=== PATIENT | male | born 1975 | race Caucasian/White ===

== ENCOUNTER 2018-04-27 12:34 | Inpatient (IN) | payer MEDICAID ==
[~2018-04-27] VITALS: Ht 177.8 cm; Wt 64.4 kg
[2018-04-27 13:04] VITALS: BP_SYST 154
[2018-04-27] MEDS ORDERED: NACL 0.9% 1,000 ML IV ONE (14:45)
[2018-04-27 15:02] LABS: BILIRUBIN,URINE NEGATIVE (NEGATIVE); BLOOD, URINE NEGATIVE (NEGATIVE); CLARITY/URINE CLEAR (CLEAR); COLOR,URINE YELLOW (YELLOW); GLUCOSE,URINE NEGATIVE (NEGATIVE); KETONES,URINE 1+ (NEGATIVE); LEUKOCYTE ESTERASE ,URINE NEGATIVE (NEGATIVE); NITRITE, URINE NEGATIVE (NEGATIVE); PH,URINE 6.5 (5.0-8.0); PROTEIN URINE NEGATIVE (NEGATIVE)
[2018-04-27 15:13] LABS: BARBITURATE, URINE NEGATIVE (NEG <=200); BENZODIAZEPINE, URINE NEGATIVE (NEG <=150); CANNABINOID, URINE POSITIVE (NEG <=50); COCAINE, URINE NEGATIVE (NEG <=150); METHAMPHETAMINES SCREEN,URINE NEGATIVE (NEG <=500); URINE AMPHETAMINE NEGATIVE (NEG <=500); URINE METHADONE NEGATIVE (NEG <=200)
[2018-04-27 15:14] LABS: OPIATE, URINE NEGATIVE (NEG <=100); PHENCYCLIDINE SCREEN,URINE NEGATIVE (NEG <=25); UR TRICYCLIC ANTIDEPRESSANTS NEGATIVE (NEG <=300); URINE OXYCODONE SCREEN NEGATIVE (NEG <=100); URINE PROPOXYPHENE SCREEN NEGATIVE (NEG <=300)
[2018-04-27 15:22] LABS: CALCIUM 9.9 mg/dL (8.4-11.0); CREATININE 0.72 mg/dL (0.55-1.30)
[2018-04-27 15:24] LABS: PROTHROMBIN TIME 10.2 SECS (9.5-12.5)
[2018-04-27 15:42] LABS: BASOPHILS % (AUTO) 0.2 % (0.0-2.0); EOSINOPHILS % (AUTO) 0.1 % (0.0-4.0); HEMATOCRIT 45.4 % (36-54); HEMOGLOBIN 15.5 g/dL (14.0-18.0); LYMPHOCYTES # (AUTO) 0.8 K/uL (1.0-5.5); LYMPHOCYTES % (AUTO) 7.6 % (20.5-51.5); MEAN CORPUSCULAR HEMOGLOBIN 32 pg (27-31); MEAN CORPUSCULAR HGB CONC 34 % (32-36); MEAN CORPUSCULAR VOLUME 94 fL (79.0-98.0); MONOCYTES # (AUTO) 0.7 K/uL (0.0-1.0); MONOCYTES % (AUTO) 7.3 % (1.7-9.3); NEUTROPHILS # (AUTO) 8.5 K/uL (1.8-7.7); NEUTROPHILS % (AUTO) 84.8 % (40.0-70.0); PLATELET COUNT (AUTO) 175 K/uL (130-430); RED BLOOD CELL COUNT(AUTO) 4.84 MIL/uL (4.2-6.2); RED CELL DISTRIBUTION WIDTH 13.7 % (9.0-15.0)
[2018-04-27] MEDS ORDERED: KCL 20 mEq in NS 1000 mL 1,000 ML IV ONE (16:00)
[2018-04-27] MEDS ORDERED: HYDR25TA4 PO (17:10)
[2018-04-27] MEDS ORDERED: KCL 40mEq in D5/0.45NS 1000 mL 1,000 ML IV ONE (17:15)
[2018-04-27 18:11] VITALS: BP_SYST 166
[2018-04-27 19:10] VITALS: BP_SYST 137
[2018-04-27] MEDS ORDERED: chlordiazePOXIDE HCL 25 MG CAPSULE PO PRN (21:30)
[2018-04-27] MEDS ORDERED: ONDANSETRON HCL 4 MG/2 ML VIAL IVP PRN (21:30)
[2018-04-27] MEDS ORDERED: cloNIDine HCL 0.2 MG TABLET PO SCH (21:30)
[2018-04-27] MEDS ORDERED: THIAMINE HCL 100 MG TABLET PO SCH (21:30)
[2018-04-27] MEDS ORDERED: THIAMINE HCL 100 MG in NS 50 ML IV ONE (21:30)
[2018-04-27] MEDS ORDERED: cloNIDine HCL 0.1 MG TABLET PO PRN (21:30)
[2018-04-27] MEDS ORDERED: FAMOTIDINE 20 MG TABLET PO ONE (22:00)
[2018-04-27] MEDS ORDERED: THIAMINE HCL 100 MG TABLET PO ONE (22:30)
[2018-04-27] MEDS ORDERED: cloNIDine HCL 0.2 MG TABLET PO ONE (22:30)
[2018-04-27] MEDS: LORazepam 2 MG/ML VIAL IVP PRN (22:41)
[2018-04-28] MEDS ORDERED: KCL 20 mEq in 100 mL (PREMIX) 100 ML IV ONE (00:10)
[2018-04-28 00:17] VITALS: BP_SYST 128
[2018-04-28] MEDS: KCL 20 mEq in D5NS 1000 mL 1,000 ML IV SCH ×2 (00:53→12:32)
[2018-04-28 07:20] VITALS: BP_SYST 117
[2018-04-28 08:28] LABS: BASOPHILS # (AUTO) 0.1 K/uL (0.0-0.2); BASOPHILS % (AUTO) 1.4 % (0.0-2.0); EOSINOPHILS # (AUTO) 0.1 K/uL (0.0-0.4); EOSINOPHILS % (AUTO) 1.4 % (0.0-4.0); HEMATOCRIT 38.4 % (36-54); HEMOGLOBIN 13.6 g/dL (14.0-18.0); LYMPHOCYTES # (AUTO) 1.5 K/uL (1.0-5.5); LYMPHOCYTES % (AUTO) 31.1 % (20.5-51.5); MEAN CORPUSCULAR HEMOGLOBIN 34 pg (27-31); MEAN CORPUSCULAR HGB CONC 35 % (32-36); MEAN CORPUSCULAR VOLUME 95 fL (79.0-98.0); MONOCYTES # (AUTO) 0.6 K/uL (0.0-1.0); MONOCYTES % (AUTO) 12.8 % (1.7-9.3); NEUTROPHILS # (AUTO) 2.5 K/uL (1.8-7.7); NEUTROPHILS % (AUTO) 53.3 % (40.0-70.0); PLATELET COUNT (AUTO) 124 K/uL (130-430); RED BLOOD CELL COUNT(AUTO) 4.04 MIL/uL (4.2-6.2); RED CELL DISTRIBUTION WIDTH 13.6 % (9.0-15.0)
[2018-04-28 08:36] LABS: CALCIUM 8.8 mg/dL (8.4-11.0); CREATININE 0.95 mg/dL (0.55-1.30); POTASSIUM 3.9 mmol/L (3.5-5.1)
[2018-04-28 08:38] LABS: WHITE BLOOD COUNT (AUTO) 4.8 K/uL (4.8-10.8)
[2018-04-28] MEDS: THIAMINE HCL 100 MG TABLET PO SCH (09:50)
[2018-04-28] MEDS: FAMOTIDINE 20 MG TABLET PO SCH (09:50)
[2018-04-28] MEDS: cloNIDine HCL 0.2 MG TABLET PO SCH ×2 (09:51→20:40)
[2018-04-28] MEDS: LORazepam 2 MG/ML VIAL IVP PRN (09:58)
[2018-04-28 12:18] VITALS: BP_SYST 117
[2018-04-28 16:55] VITALS: BP_SYST 117
[2018-04-28 20:00] VITALS: BP_SYST 114
[2018-04-28] MEDS ORDERED: ENOXAPARIN SODIUM 40 MG/0.4 ML SYRINGE SUBCUT SCH (21:00)
[2018-04-29 00:10] VITALS: BP_SYST 141
[2018-04-29] MEDS: KCL 20 mEq in D5NS 1000 mL 1,000 ML IV SCH ×2 (05:59→06:04)
[2018-04-29 08:00] VITALS: BP_SYST 143
[2018-04-29 08:12] LABS: CALCIUM 8.4 mg/dL (8.4-11.0); CREATININE 0.61 mg/dL (0.55-1.30); POTASSIUM 3.6 mmol/L (3.5-5.1)
[2018-04-29] MEDS: cloNIDine HCL 0.2 MG TABLET PO SCH (09:47)
[2018-04-29] MEDS: FAMOTIDINE 20 MG TABLET PO SCH (09:48)
[2018-04-29] MEDS: THIAMINE HCL 100 MG TABLET PO SCH (09:48)
[2018-04-29] MEDS: LORazepam 2 MG/ML VIAL IVP PRN (11:55)
[2018-04-29 12:00] VITALS: BP_SYST 139
[2018-04-29 15:15] VITALS: BP_SYST 126
[2018-04-29] MEDS ORDERED: THIA50TA2 PO (15:32)
[2018-04-29] MEDS ORDERED: LIB25 PO (15:34)
[2018-04-29] MEDS ORDERED: FAMO40TA71 PO (15:34)
[2018-04-29] MEDS ORDERED: CAT.1 PO (15:35)
== END 2018-04-29 15:55 | disposition home or self-care (01) | DRG 425 ==
LOC: SED 12:34 → STU 17:12
PROVIDERS: ADMIT Family Medicine; ATTEND Family Medicine
DX: E87.6 Hypokalemia (principal); E83.41 Hypermagnesemia; I10 Essential (primary) hypertension; E87.8 Other disorders of electrolyte and fluid balance, not elsewhere classified; E87.1 Hypo-osmolality and hyponatremia; F12.90 Cannabis use, unspecified, uncomplicated; F10.239 Alcohol dependence with withdrawal, unspecified
CPT/HCPCS: 36415; 80048; 80307; 81003; 83735-TC; 85025; 85610-TC; 93005; 96360; 96361; 99285; G0482; J1650; J2060; J3480; J7030; J7042